=== PATIENT | male | born 1960 | race Caucasian/White ===

== ENCOUNTER 2023-09-25 07:48 | Day surgery (SDC) | payer OTHER, SELFPAY ==
[2023-09-25] VITALS (9 sets, daily range): BP systolic 94–114; BP diastolic 55–76; BMI 25.9; BMI 25.1
[2023-09-25 08:07] LABS: Hematocrit 46.2 % (39.0-52.0); Hemoglobin 15.6 g/dL (13.0-18.0); Mean Corp Hgb Conc. 33.8 g/dL (33.0-37.0); Mean Corpuscular Hgb 29.8 pg (27.0-31.0); Mean Corpuscular Volume 88.3 fL (80.0-94.0); Mean Platelet Volume 8.6 fL (7.4-10.4); Platelet Count 215 10^3/uL (130-400); Red Blood Cell Count 5.23 10^6/uL (4.70-6.10); Red Cell Dist. Width 13.2 % (11.5-14.5); White Blood Cell Count 4.8 10^3/uL (4.8-10.8)
[2023-09-25 08:23] LABS: Blood Urea Nitrogen 29 mg/dl (9-20); Calcium 9.3 mg/dl (8.4-10.2); Carbon Dioxide 26 mmol/L (22-30); Chloride 105 mmol/L (98-107); Estimated Creatinine Clearance 108 ml/min; Glucose 149 mg/dl (70-99); Sodium 140 mmol/L (135-145); eGFR > 60.00
[2023-09-25] MEDS: NSS 265 ML IV (08:32)
[2023-09-25 10:19] LABS: ACT-LR - POC 224 Seconds (116-155)
--- NOTE | 2023-09-25 18:47 | ITS.CL.CATH ---
[employer] - Catheterization
Cardiac Catheterization
Procedure Report:
LEFT HEART CATHETERIZATION
Date of Procedure: September 25, 2023
Referring: Dr. Donaldo Zimmer
PROCEDURES:
1. Left heart catheterization with coronary and single-plane ventriculography
2. Hemodynamic assessment of the RCA with a [place] Verrata wire
INDICATION: This is a 63-year-old gentleman underwent successful stenting of the mid to distal/apical LAD on August 30, 2019. At that time overlapping 3.0 x 38 mm and 2.5 x 38 mm Xience stents were implanted in the mid to apical LAD. He
developed recurring chest pain and return to the catheterization laboratory on September 01, 2019 with an elevated troponin and chest and neck discomfort. He was found to have thrombosed the mid to distal LAD stents and underwent balloon angioplasty
with christianity of antegrade flow, however, the terminal vessel as it wraps around the apex was a very small caliber vessel with limited runoff. On review of the catheterization films from 2019 and occluded ramus intermedius was noted as well
which was not documented in the catheterization report.
The patient was referred for an exercise stress echocardiogram. He exercised on a Maldonado protocol for 9: 00 achieving 10 METS of physical activity and developed 8/10 throat burning and chest discomfort lasting 2 minutes into recovery. Stress echo
imaging was notable for regional wall motion abnormalities involving the mid to distal inferior wall, mid inferoseptum, apical septum, and apical lateral gan for which he is now referred for coronary angiography.
ACCESS: Poor right and left radial pulse. Right common femoral artery, 6 [place] sheath using ultrasound guidance and micropuncture
HEMODYNAMICS : (mmHg)
AO (s/d) : 114/62
LV (s/d) : 115/8
LVEDP : 16
CORONARY FINDINGS
DOMINANCE: Right
LEFT MAIN: Normal
LEFT ANTERIOR DESCENDING: The LAD arises normally from the left main and runs in the anterior interventricular groove. The mid RCA near the origin of the first diagonal branch has diffuse 40% narrowing. The first diagonal branch arises from the
proximal third of the LAD and has a 30% ostial narrowing and only minor luminal irregularities. The mid stents beginning in the mid LAD are found to be 100% occluded with faint right to right collaterals filling the apical LAD.
RAMUS: The ramus intermedius is found to be diffusely diseased proximally. The ramus is noted to fill by well-developed collaterals from the distal RCA
CIRCUMFLEX: The circumflex is a medium caliber nondominant vessel supplying a single terminal obtuse marginal branch. Minor irregularities are present
RIGHT CORONARY ARTERY: The right coronary artery is a small caliber dominant vessel with a 50-60% stenosis in its midportion. Hemodynamic assessment of the RCA was undertaken using a [place] Omni wire and the iFR serially measured above the
ischemic threshold at 0.98 and 0.98
VENTRICULOGRAPHY: Left ventriculography was performed in an [place] projection. The digital single-plane left ventricular ejection fraction is visually estimated at 45% with anterolateral hypokinesis and distal anterior, apical, and inferoapical
akinesis
HEMODYNAMIC ASSESSMENT OF THE RCA WITH A [place] OMNI WIRE: The origin of the RCA was cannulated with a 6 Fr JR4 guide catheter. Intravenous heparin was administered and the ACT was followed during the procedure. Two hundred micrograms of
intracoronary nitroglycerin was given through the guide catheter. A [place] Omni wire was advanced to the guide catheter tip and normalized to guide catheter pressure. The Omni wire was then carefully manipulated across the stenosis in the mid RCA
and into the distal vessel where the iFR serially measured above the ischemic threshold at 0.98 and 0.98. The Omni wire was withdrawn to the guide catheter tip where the resting Pd/Pa measured 1.0 confirming no baseline drift.
RADIATION SUMMARY: Fluoro Time (min): 4.8, Dose (mGy): 267.8, DAP (Gy.cm2) : 23.8
Closure Device: 6 [place] Angio-Seal RFA
CONCLUSIONS
1. 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 The ramus intermedius had been noted on prior studies but not commented upon and I suspect the mid to apical LAD stents have been occluded for some time.
2. Moderate mid RCA stenosis with unremarkable iFR measuring 0.98 and PCI is deferred
RECOMMENDATIONS
1. Continued medical management and risk factor modification. Push antianginal therapy for chronically occluded ramus intermedius which is collateralized from the distal RCA
Copy to: Dr. Donaldo Zimmer
== END 2023-09-25 14:10 | disposition home or self-care (01) ==
LOC: CATH 07:48
PROVIDERS: ATTENDING PHYSICIAN Internal Medicine Interventional Cardiology; FAMILY PHYSICIAN Internal Medicine; OTHER PHYSICIAN Internal Medicine Cardiovascular Disease
DX: I25.10 Atherosclerotic heart disease of native coronary artery without angina pectoris (principal); Z95.5 Presence of coronary angioplasty implant and graft; I25.82 Chronic total occlusion of coronary artery; I25.2 Old myocardial infarction; E11.9 Type 2 diabetes mellitus without complications
CPT/HCPCS: 76937; 80048; 85027; 85347; 93005; 93458; 93571; C1760; C1769; C1894; Q9967